=== PATIENT | female | born 1940 | race Caucasian/White ===

== ENCOUNTER 2017-01-11 22:18 | Inpatient (IN) | payer BC ==
--- NOTE | ~2017-01-11 | HP ---
History And Physical [address] [place]. [address] NAME: TRUE GIRON : 39 STATUS : ADM IN PAT#: [id number] AGE: 76 ADM/REG DATE : 01/11/17 MR#: [id number] REPORT SERV DATE: 01/12/17 DICTATED BY: IRAIDA MCCOLLUM DATE: 01/11/17 REPORT STATUS : Draft TRANSCRIBED BY: MODL DATE: 01/11/17 DATE OF ADMISSION: 01/11/2017 CHIEF COMPLAINT: Left hip pain. HISTORY: This is a 76-year-old female, who fell and injured her left hip. She has multiple medical problems including cirrhosis and dementia, she is accompanied here by her two sons who requested that I take care of her at [facility]. ALLERGIES: NONE. MEDICATIONS: See chart. PAST MEDICAL HISTORY: Hay fever, hypertension, history of pneumonia in October of this year, cirrhosis diagnosed four to five years ago, hemorrhoids, hiatal hernia, esophageal varices, GERD, diabetes, hypothyroidism, and blood transfusions 5 years ago. PAST SURGICAL HISTORY: Breast biopsy x2 in 1969, EGD in 2014, and paracentesis in 2012. SOCIAL HISTORY: Lives in the [facility]. She is here with her sons. Denies alcohol, cigarettes or illicit drug use. FAMILY HISTORY: No known anesthetic complications. REVIEW OF SYSTEMS: No recent illnesses with exception of the pneumonia noted above and chronic confusion. She also had acute renal insufficiency, chronic kidney disease, and elevated creatinine. PHYSICAL EXAMINATION: GENERAL: She is alert, pleasant, intermittently conversant. HEENT: Atraumatic, normocephalic. NECK: Supple. CHEST: Symmetric, nontender. LUNGS: As per the evaluation. CV: Regular. ABDOMEN: Soft. No mass. EXTREMITIES: Both upper extremities, right lower extremity are without acute trauma. Left lower extremity is short and externally rotated. SKIN: Intact. Compartment supple. 2+ pulses. NEURO: She is really unable to cooperate with the exam. X-RAY: Comminuted left intertrochanteric femur fracture. ASSESSMENT: Left intertrochanteric femur fracture. PLAN: ORIF. History And Physical [address] [place]. [address] NAME: TRUE GIRON : 39 STATUS : ADM IN PAT#: [id number] AGE: 76 ADM/REG DATE : 01/11/17 MR#: [id number] REPORT SERV DATE: 01/12/17 DICTATED BY: IRAIDA MCCOLLUM DATE: 01/11/17 REPORT STATUS : Draft TRANSCRIBED BY: IVÁN DATE: 01/11/17 I had a lengthy discussion with the anesthesiologist and with the family preoperatively. Discussed risks, benefits, etc, and they wished to proceed. JOVANA/IVÁN Marjorie Mccollum M.D. / [id number] CC: Marjorie Mccollum M.D.
--- NOTE | ~2017-01-11 | OP ---
Record Of Operation [facility] [address] [place]. [address] NAME: TRUE GIRON : 39 STATUS : ADM IN PAT#: [id number] AGE: 76 ADM/REG DATE : 01/11/17 MR#: [id number] REPORT SERV DATE: 01/12/17 DICTATED BY: IRAIDA DEL RIO DATE: 01/11/17 REPORT STATUS : Draft TRANSCRIBED BY: MODL DATE: 01/11/17 DATE OF PROCEDURE: PREOPERATIVE DIAGNOSIS: Left intertrochanteric femur fracture. POSTOPERATIVE DIAGNOSIS: Left intertrochanteric femur fracture. OPERATION: [place]/intertrochanteric femur fracture. SIDE: left. ARMATURE AND ROTOR WINDER: ESTIMATED BLOOD LOSS: About 100 mL. TOURNIQUET TIME: None. SPECIMENS: None. ANESTHESIA: See chart. PROCEDURE: The patient was taken to the preoperative holding area. The patient was appropriately identified, marked and the consent form carefully checked. The patient was taken then to the operating room and anesthetic was induced per the anesthesiologist. The patient was carefully positioned, carefully padded, prepped and draped on the fracture table. Prior to the surgical prep a closed reduction was obtained by closed method using fluoroscopic guidance. The patient was then prepped and draped in the usual sterile fashion. Using fluoroscopic guidance, a straight lateral incision was made. This was followed by electrocautery through the fat, the IT band and the vastus, staying towards the posterior portion of the lateral vastus to decrease the amount of muscle tissue that was cut through. Meticulous hemostasis was obtained with electrocautery. Lateral femoral cortex was exposed further with periosteal elevator and appropriate retraction. A guide was then used to place a guidewire basically in the center of the head on AP and lateral x-ray views. This was followed by depth gauge and then triple reamer. Lag screw was placed over the guidewire. The sliding plate was then placed and impacted and checked to be sure it was down snug. The plate was held with a plate clamp distally and reduction again checked. The screw holes in the plate were then filled with screws in the standard fashion with drill depth gauge and then self-tapping screw placement. The screws were then tightened by hand. All traction was released and the compression screw placed and tightened. Again x-ray views were checked to ascertain reduction and screw length. Record Of Operation [facility] [address] [place]. [address] NAME: TRUE GIRON : 39 STATUS : ADM IN [facility]#: [id number] AGE: 76 ADM/REG DATE : 01/11/17 MR#: [id number] REPORT SERV DATE: 01/12/17 DICTATED BY: IRAIDA DEL RIO DATE: 01/11/17 REPORT STATUS : Draft TRANSCRIBED BY: MODL DATE: 01/11/17 The wound was then irrigated and closed with sutures in the vastus. A medium drain was placed distally anteriorly between the vastus and the IT band, then sutured on the IT band, 2-0 subcutaneous, and josé miguel in the skin. Wound dressed sterilely. The patient was awakened and carefully transferred to the bed and transferred to the recovery room without incident. COUNTS: Correct. JOVANA/IVÁN Marjorie Del Rio M.D. / [id number] CC: Marjorie Del Rio M.D.
--- NOTE | ~2017-01-11 | DS ---
Discharge Summary [facility] [address] [place]. [address] NAME: TRUE ANN : 39 STATUS : DIS IN PAT#: [id number] AGE: 76 ADM/REG DATE : 01/11/17 MR#: [id number] REPORT SERV DATE: 02/23/17 DICTATED BY: VAISHALI PERATLA DATE: 02/22/17 REPORT STATUS : Draft TRANSCRIBED BY: MODL DATE: 02/22/17 ADMISSION DATE: 01/11/2017 DISCHARGE DATE: 01/16/2017 DISCHARGE DIAGNOSES: 1. Left hip fracture status post ORIF. 2. Acute blood loss anemia postoperatively. 3. Dementia with acute encephalopathy, encephalopathy resolved. 4. Nonalcoholic steatohepatitis. 5. Diabetes mellitus type 2 with hyperglycemia. 6. Acute kidney injury on chronic kidney disease, stage 4. 7. Hypertension. 8. Hypothyroidism. HISTORY OF PRESENT ILLNESS: For complete history, please refer to admission H and P. Briefly, Ms. Ann was initially admitted to the [facility] secondary to a fall with a left hip fracture. She requested Dr. Mccollum for her Orthopedic Surgeon and therefore was transferred to the [facility]. Please refer to, in addition, the interim discharge summary by Dr. Jesus Alberto Soliz. I initially saw the patient on 01/15/2017. She was four days postop her ORIF of the left hip. She was asleep, but easily aroused. Her son was at the bedside. The patient answered questions appropriately and followed commands. Her son reported that the previous hallucinations that she was experiencing were now resolved. She was oriented x2. She did have a positive fluid balance postoperatively; therefore, her home Aldactone and Lasix doses were resumed on this date. Ms. Ann was going to return to [facility], however, on this date, her insurance was pending approval. On 01/16/2017, Ms. Ann was continuing to improve, doing well, sitting up in a chair, alert and oriented, eating without difficulty and significantly better. No further hallucinations. It was okay for the patient to transfer to rehab per Dr. Mccollum. Therefore, on late afternoon of 01/16/2017, Ms. Ann was transferred to [facility] in stable condition. DISCHARGE INSTRUCTIONS: 1. Diet: 1800-calorie ADA diet is recommended. 2. Activity: As tolerated with Physical Therapy and Occupational Therapy evaluating and treat. DISCHARGE MEDICATIONS: As follows: 1. Questran 4 g p.o. daily. 2. Colace 100 mg p.o. b.i.d. 3. Ferrous sulfate 300 mg p.o. b.i.d. 4. Prozac 10 mg p.o. daily. 5. Fluticasone nasal spray, one spray each nostril daily. 6. Lasix 20 mg p.o. daily. 7. NovoLog sliding scale level 1. 8. Levemir 5 units subcutaneously daily at bedtime. 9. Synthroid 75 mcg p.o. daily 30 minutes before breakfast on an empty stomach. Please Discharge Summary [address] [place]. [address] NAME: TRUE ANN : 39 STATUS : DIS IN PAT#: [id number] AGE: 76 ADM/REG DATE : 01/11/17 MR#: [id number] REPORT SERV DATE: 02/23/17 DICTATED BY: VAISHALI PERALTA DATE: 02/22/17 REPORT STATUS : Draft TRANSCRIBED BY: IVÁN DATE: 02/22/17 note, this dose was changed while Ms. Ann was in the hospital as her TSH was elevated at greater than 7. 10.Corgard 40 mg p.o. daily. 11.Losartan 50 mg p.o. daily. 12.Prilosec 20 mg p.o. daily. 13.Seroquel 12.5 mg p.o. daily at bedtime. 14.Aldactone 25 mg p.o. daily. 15.Coumadin sliding scale. 16.Dulcolax tablet 15 mg p.o. p.r.n. constipation. 17.Dulcolax suppository p.r.n. constipation. 18.Tramadol 25 mg p.o. every six hours p.r.n. 19.Albuterol multidose inhaler two puffs q.4 hours p.r.n. shortness of breath. 20.Pepcid 20 mg p.o. b.i.d. Other discharge instructions include Ms. Ann will follow up with her primary care provider after discharge from rehab. BRIJESH/IVÁN Kathy Peralta [facility] / [id number] CC: Tanisha Spencer M.D.
--- NOTE | ~2017-01-11 | IDS ---
Interim Discharge Summary [facility] [address] [place]. [address] NAME: TRUE GIRON : 39 STATUS : ADM IN PAT#: [id number] AGE: 76 ADM/REG DATE : 01/11/17 MR#: [id number] REPORT SERV DATE: 01/14/17 DICTATED BY: ASTRID SOLIZ DATE: 01/14/17 REPORT STATUS : Draft TRANSCRIBED BY: MODL DATE: 01/14/17 ADMISSION DATE: 01/11/2017 DISCHARGE DATE: DIESEL ENGINE SPECIALIST: Dr. Reynold Mccollum, Orthopedic Surgery. PROBLEM LIST: 1. Acute traumatic fracture, left hip requiring surgical repair. 2. 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 3. Acute blood loss anemia due to hip fracture and surgery. 4. History of nonalcoholic steatohepatitis with current MELD of 12. 5. Acute kidney injury, superimposed on stage 4 chronic kidney disease. 6. Leukocytosis related to surgery and intraoperative steroids. 7. Doubt true urinary tract infection. 8. Uncontrolled hypertension. 9. Diabetes mellitus type 2 with A1c 5.5%. 10.Hypothyroidism. HISTORY: This patient was admitted at the [facility] because of a fall with a left hip fracture and the family wanted Dr. Mccollum to do the surgical care. The patient was felt medically stable for that procedure and on 01/12/2017, she had the surgery successfully. The patient, however, has had delirium, agitation, hallucinations. In talking with her sons, Akbar and Osvaldo, it was found that in 2015, she had significant decline in her cognitive function. They had to hire someone to come in to cook and clean. The patient just stayed in the bed. She was not any longer able to balance a checkbook, so the son Osvaldo had it take over. She was having resistance to bathing herself or even allowing anyone else to bathe her. She was no longer able to drive. She was given an antidepressant by her primary, but it did not really seem to help. She had a fall in June 2016 with a left knee fracture, treated with conservative nonsurgical therapy. She went to a rehab for a while and then to an assisted living facility, and she appeared to do fairly well. She then underwent EGD colonoscopy that was ordered by Dr. Todd Pacheco because she has a history of iron-deficiency anemia and nonalcoholic steatohepatitis. The EGD and colonoscopy revealed portal hypertensive gastropathy and hiatal hernia. A single gastric polyp colonoscopy revealed four nonbleeding colonic AV malformations, treated with coagulation therapy. One polyp in the transverse colon that was resected and received. Duodenal biopsies normal. Gastric antrum biopsy showed mild chronic gastritis with foveolar hyperplasia. No malignancy, dysplasia, or intestinal metaplasia. Negative H pylori. The colonic biopsy revealed essentially unremarkable findings. After the endoscopy, the sons described that the patient was much more confused than she had been ever before. She had a fall at the assisted living facility last week on Saturday. She was taken to the ER in [place], where the sons report that a CT of the brain was done and they were told, it was "okay." They were told that she had a UTI and was given an antibiotics. They were told that her blood pressure was high and her sugars were low. She went back to the assisted living facility. Reportedly, she had another fall and was taken Interim Discharge Summary [address] [place]. [address] NAME: TRUE GIRON : 39 STATUS : ADM IN [facility]#: [id number] AGE: 76 ADM/REG DATE : 01/11/17 MR#: [id number] REPORT SERV DATE: 01/14/17 DICTATED BY: ASTRID SOLIZ DATE: 01/14/17 REPORT STATUS : Draft TRANSCRIBED BY: IVÁN DATE: 01/14/17 to [facility], where she was found to have left hip fracture. She underwent the surgical therapy as mentioned above. Postop, the patient was unable to sleep and she had not slept for at least 24 hours before the surgery according to the sons because she was in the hospital at [facility]. She was restless. She was having visual hallucinations. She was not able to follow simple commands. She was not even able to count fingers in front of her. She would constantly look off to the side away from where the hand was. Imaging included CT scan of the brain without contrast. There was no evidence of trauma or hemorrhage that is moderate atrophy and moderate deep white matter changes. I did an MRI to see if there was any recent stroke. No acute stroke was noted. No bleed. There was fairly extensive atrophy and deep white matter changes as well as significant midbrain atrophy suggesting Parkinson. The patient slept much better on the evening of 01/13/2017 and was still sleeping early on the morning of 01/14/2017, and I asked the staff to allow her to sleep, which she did for a number of hours thereafter. She was then calm, alert, oriented to not only her person but where she was at. She knew she was at [facility] by name. She knew she was here because of injuries to her legs. She was able to follow simple commands. She was able to read. She made good sense. She was dramatically improved. 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 I have recommended to the sons that we use low-dose Seroquel just at bedtime to try to help ensure sleep, do this short-term, hopefully stop it before discharge and then began some Aricept at discharge, low dose at bedtime and then potentially a month or so down the road if she has done well with that, consider addition of Namenda. She does have the history of diabetes, but her A1c shows it is not taking much at all to control her sugars, so I have stopped her Levemir. I do not know how significant her kidney disease has been between 2014 and now. Back in 2014, creatinine was 1.46. During this hospitalization, it was up to 2.16. Currently, it is at 1.85 that may just be reflective of hydration and her creatinine at its baseline maybe now closer to 2. She was on levothyroxine at home 50 mcg, but her TSH was 7.19, so our [facility] partners increased to the 75 mcg at bedtime, which I think is reasonable as well. There has also been concerned about whether she might have had a urinary tract infection. The urinalysis from 01/10/2017 was from a catheter and had blood and also leukocyte esterase trace, 11 white cells, moderate bacteria. They did not do a culture. Then, her Duval catheter was left in place and on 01/12/2017, a repeat urinalysis showed large amount of leukocyte esterase, greater than 182 white cells, many white cell clumps, moderate budding yeasts, and 107 red blood cells, but the culture on that is just Azalea glabrata, so we are planning to take that Duval catheter out in the morning tomorrow and planning to discontinue antibiotics. I have requested records from Dr. Todd Pacheco's office, they have not come yet. Interim Discharge Summary [facility] [place]. [address] NAME: TRUE GIRON : 39 STATUS : ADM IN PAT#: [id number] AGE: 76 ADM/REG DATE : 01/11/17 MR#: [id number] REPORT SERV DATE: 01/14/17 DICTATED BY: ASTRID SOLIZ DATE: 01/14/17 REPORT STATUS : Draft TRANSCRIBED BY: IVÁN DATE: 01/14/17 [facility]/IVÁN Astrid Soliz M.D. / [id number] CC: Tanisha Spencer M.D.
[~2017-01-11 22:18] MED LIST: CLARIT10 PO; COLESTID1 GM PO; COR20 PO; COR40 PO; COZ25 PO; COZ50 PO; FESO4; FESO4 PO; FLONASE; FLONASE NAS; GLUCOTROL5 PO; GLUMETZA500 MG PO; IMOD PO; IRON160 MG PO; L20 PO; LEVEMFLXPN SC; LEVOTHYROXIN75 MCG PO; MULTIPLE VIT PO; NEUR600 PO; NOVOLOG SC; NOVOPEN SC; PEP20 PO; PEPTO BISMOL LIQ1 ML; PRILO PO; PRILOSEC OTC20 MG PO; PROAIR HFA INH; PROZ10 PO; PROZAC PO; SPIRO25 PO; SPIRO50 PO; SYN.05 PO; SYN075 PO; T PO; ULTRAM50 PO; ZOFRAN4 PO
[2017-01-12 05:12] LABS: ASCORBIC ACID (UR NOT ORDER) NEG (NEG); BILIRUBIN, URINE NEGATIVE (NEG); KETONE, URINE NEGATIVE (NEG); LEUKOCYTE ESTERASE(NOT OR LARGE (NEG)
[2017-01-12 05:34] LABS: WBC (NOT ORDERED) (RFLEX) > 182 (0-5)
[2017-01-12 06:41] LABS: INTERNATIONAL NORMAL RATI 1.3 UNITS (-); PROTIME (NOT ORD) 15.8 SEC (12.0-14.5)
[2017-01-12 06:43] LABS: BASOPHILS 0.1 %; BASOPHILS ABSOLUTE 0.01 10/3/uL (0.0-0.16); EOSINOPHILS 0.1 %; EOSINOPHILS ABSOLUTE 0.02 10/3/uL (0.0-0.53); HEMATOCRIT 31.8 % (36.0-48.0); HEMOGLOBIN 10.2 g/dL (12.0-16.0); IMMATURE GRANULOCYTES 0.2 %; IMMATURE GRANULOCYTES ABSOLUTE 0.04 10/3/uL (0.0-0.11); LYMPHOCYTES 4.7 %; LYMPHOCYTES ABSOLUTE 0.78 10/3/uL (0.67-4.30); MEAN CORPUS HGB CONC 32.1 g/dL (32.0-36.0); MEAN CORPUSCULAR HEMOGLOB 27.3 pg (26.0-34.0); MONOCYTES 11.6 %; MONOCYTES ABSOLUTE 1.92 10/3/uL (0.21-1.20); NEUTROPHILS 83.3 %; NEUTROPHILS ABSOLUTE 13.72 10/3/uL (2.02-8.40); PLATELET COUNT 184 10/3/uL (150-400); RBC DISTRIBUTION WIDTH 22.7 % (12.0-16.0); RED CELL COUNT 3.74 10/6/uL (4.0-5.6)
[2017-01-12 06:44] LABS: MANUAL DIFF NO %; WHITE BLOOD CELLS 16.5 10/3/uL (4.5-10.5)
[2017-01-12 06:54] LABS: A/G RATIO 0.6 (0.7-1.9); ALBUMIN 2.6 G/DL (3.5-5.0); ALKALINE PHOSPHATASE 151 U/L (45-117); BUN (BLOOD UREA NITROGEN) 29 MG/DL (6-23); CALCIUM, SERUM 8.3 MG/DL (8.5-10.4); CHLORIDE, SERUM 101 MMOL/L (96-112); CO2 (CARBON DIOXIDE) 23 MMOL/L (24-34); GFR AFRICAN AMERICAN 26 ML/MIN (>=60); GFR NON AFRICAN AMERICAN 22 ML/MIN (>=60); GLOBULIN 4.1 G/DL (2.5-4.1); GLUCOSE, SERUM 183 MG/DL (60-99); POTASSIUM, SERUM 3.3 MMOL/L (3.5-5.3); SGOT(AST) 27 U/L (5-40); SGPT(ALT) 23 U/L (5-65); SODIUM, SERUM 136 MMOL/L (135-148); TOTAL BILIRUBIN 0.2 MG/DL (0-1.2); TOTAL PROTEIN 6.7 G/DL (6.0-8.5)
[2017-01-12 07:06] LABS: PLATELET ESTIMATE ADQ (ADEQUATE)
[2017-01-13 06:50] LABS: BASOPHILS 0.1 %; BASOPHILS ABSOLUTE 0.01 10/3/uL (0.0-0.16); EOSINOPHILS 0.1 %; EOSINOPHILS ABSOLUTE 0.02 10/3/uL (0.0-0.53); HEMOGLOBIN 8.5 g/dL (12.0-16.0); IMMATURE GRANULOCYTES 0.5 %; IMMATURE GRANULOCYTES ABSOLUTE 0.07 10/3/uL (0.0-0.11); LYMPHOCYTES 7.4 %; LYMPHOCYTES ABSOLUTE 1.03 10/3/uL (0.67-4.30); MEAN CORPUS HGB CONC 33.6 g/dL (32.0-36.0); MEAN CORPUSCULAR HEMOGLOB 28.1 pg (26.0-34.0); MEAN CORPUSCULAR VOLUME 83.8 fL (80-100); MONOCYTES 15.5 %; MONOCYTES ABSOLUTE 2.17 10/3/uL (0.21-1.20); NEUTROPHILS 76.4 %; NEUTROPHILS ABSOLUTE 10.67 10/3/uL (2.02-8.40); PLATELET COUNT 157 10/3/uL (150-400); RBC DISTRIBUTION WIDTH 23.2 % (12.0-16.0); RED CELL COUNT 3.02 10/6/uL (4.0-5.6)
[2017-01-13 06:51] LABS: HEMATOCRIT 25.3 % (36.0-48.0); MANUAL DIFF NO %
[2017-01-13 06:56] LABS: INTERNATIONAL NORMAL RATI 1.5 UNITS (-); PROTIME (NOT ORD) 17.5 SEC (12.0-14.5)
[2017-01-13 06:59] LABS: BUN (BLOOD UREA NITROGEN) 34 MG/DL (6-23); CALCIUM, SERUM 8.1 MG/DL (8.5-10.4); CHLORIDE, SERUM 99 MMOL/L (96-112); CO2 (CARBON DIOXIDE) 23 MMOL/L (24-34); CREATININE 2.13 MG/DL (0.55-1.02); GFR AFRICAN AMERICAN 25 ML/MIN (>=60); GFR NON AFRICAN AMERICAN 22 ML/MIN (>=60); GLUCOSE, SERUM 144 MG/DL (60-99); POTASSIUM, SERUM 3.9 MMOL/L (3.5-5.3); SODIUM, SERUM 133 MMOL/L (135-148)
[2017-01-13 07:53] LABS: PLATELET ESTIMATE ADQ (ADEQUATE)
[2017-01-14 05:18] LABS: A/G RATIO 0.6 (0.7-1.9); ALBUMIN 2.2 G/DL (3.5-5.0); ALKALINE PHOSPHATASE 133 U/L (45-117); BUN (BLOOD UREA NITROGEN) 33 MG/DL (6-23); CALCIUM, SERUM 8.1 MG/DL (8.5-10.4); CHLORIDE, SERUM 101 MMOL/L (96-112); CO2 (CARBON DIOXIDE) 24 MMOL/L (24-34); CREATININE 1.85 MG/DL (0.55-1.02); GFR AFRICAN AMERICAN 30 ML/MIN (>=60); GFR NON AFRICAN AMERICAN 26 ML/MIN (>=60); GLOBULIN 3.7 G/DL (2.5-4.1); GLUCOSE, SERUM 141 MG/DL (60-99); POTASSIUM, SERUM 4.1 MMOL/L (3.5-5.3); SGOT(AST) 33 U/L (5-40); SGPT(ALT) 10 U/L (5-65); SODIUM, SERUM 135 MMOL/L (135-148); TOTAL BILIRUBIN 0.4 MG/DL (0-1.2); TOTAL PROTEIN 5.9 G/DL (6.0-8.5)
[2017-01-14 05:37] LABS: INTERNATIONAL NORMAL RATI 1.3 UNITS (-); PROTIME (NOT ORD) 16.5 SEC (12.0-14.5)
[2017-01-14 05:38] LABS: BASOPHILS 0.1 %; BASOPHILS ABSOLUTE 0.01 10/3/uL (0.0-0.16); EOSINOPHILS 1.5 %; EOSINOPHILS ABSOLUTE 0.13 10/3/uL (0.0-0.53); HEMATOCRIT 26.3 % (36.0-48.0); HEMOGLOBIN 8.8 g/dL (12.0-16.0); IMMATURE GRANULOCYTES 0.2 %; IMMATURE GRANULOCYTES ABSOLUTE 0.02 10/3/uL (0.0-0.11); LYMPHOCYTES 11.6 %; LYMPHOCYTES ABSOLUTE 1.01 10/3/uL (0.67-4.30); MEAN CORPUS HGB CONC 33.5 g/dL (32.0-36.0); MEAN CORPUSCULAR HEMOGLOB 28.6 pg (26.0-34.0); MEAN CORPUSCULAR VOLUME 85.4 fL (80-100); MEAN PLATELET VOLUME 10.6 fL (9.2-13.0); MONOCYTES 14.7 %; MONOCYTES ABSOLUTE 1.28 10/3/uL (0.21-1.20); NEUTROPHILS 71.9 %; NEUTROPHILS ABSOLUTE 6.25 10/3/uL (2.02-8.40); PLATELET COUNT 167 10/3/uL (150-400); RBC DISTRIBUTION WIDTH 23.5 % (12.0-16.0); RED CELL COUNT 3.08 10/6/uL (4.0-5.6); WHITE BLOOD CELLS 8.7 10/3/uL (4.5-10.5)
[2017-01-14 05:50] LABS: MANUAL DIFF NO %
[2017-01-14 06:52] LABS: GIANT PLATELET FEW; PLATELET ESTIMATE ADQ (ADEQUATE); RBC MORPHOLOGY ABN (NORMAL)
[2017-01-15 09:01] LABS: BASOPHILS 0.1 %; BASOPHILS ABSOLUTE 0.01 10/3/uL (0.0-0.16); EOSINOPHILS 4.5 %; EOSINOPHILS ABSOLUTE 0.31 10/3/uL (0.0-0.53); HEMATOCRIT 25.3 % (36.0-48.0); HEMOGLOBIN 8.4 g/dL (12.0-16.0); IMMATURE GRANULOCYTES 0.3 %; IMMATURE GRANULOCYTES ABSOLUTE 0.02 10/3/uL (0.0-0.11); LYMPHOCYTES ABSOLUTE 1.11 10/3/uL (0.67-4.30); MEAN CORPUS HGB CONC 33.2 g/dL (32.0-36.0); MEAN CORPUSCULAR HEMOGLOB 28.2 pg (26.0-34.0); MEAN CORPUSCULAR VOLUME 84.9 fL (80-100); MEAN PLATELET VOLUME 10.9 fL (9.2-13.0); MONOCYTES ABSOLUTE 1.04 10/3/uL (0.21-1.20); NEUTROPHILS 64.1 %; NEUTROPHILS ABSOLUTE 4.44 10/3/uL (2.02-8.40); PLATELET COUNT 165 10/3/uL (150-400); RBC DISTRIBUTION WIDTH 23.4 % (12.0-16.0); RED CELL COUNT 2.98 10/6/uL (4.0-5.6); WHITE BLOOD CELLS 6.9 10/3/uL (4.5-10.5)
[2017-01-15 09:03] LABS: MANUAL DIFF NO %
[2017-01-15 09:20] LABS: A/G RATIO 0.6 (0.7-1.9); ALBUMIN 1.9 G/DL (3.5-5.0); ALKALINE PHOSPHATASE 132 U/L (45-117); CALCIUM, SERUM 7.5 MG/DL (8.5-10.4); CHLORIDE, SERUM 103 MMOL/L (96-112); CO2 (CARBON DIOXIDE) 24 MMOL/L (24-34); GFR AFRICAN AMERICAN 31 ML/MIN (>=60); GFR NON AFRICAN AMERICAN 27 ML/MIN (>=60); GLOBULIN 3.3 G/DL (2.5-4.1); GLUCOSE, SERUM 127 MG/DL (60-99); POTASSIUM, SERUM 4.8 MMOL/L (3.5-5.3); SGOT(AST) 23 U/L (5-40); SGPT(ALT) 9 U/L (5-65); SODIUM, SERUM 135 MMOL/L (135-148); TOTAL BILIRUBIN 0.4 MG/DL (0-1.2); TOTAL PROTEIN 5.2 G/DL (6.0-8.5)
[2017-01-15 09:22] LABS: BUN (BLOOD UREA NITROGEN) 39 MG/DL (6-23)
[2017-01-15 09:48] LABS: INTERNATIONAL NORMAL RATI 1.8 UNITS (-)
[2017-01-15 09:55] LABS: PROTIME (NOT ORD) 20.3 SEC (12.0-14.5)
[2017-01-15 10:04] LABS: MACROCYTES 1+ (5-10/OIF) (0-5/OIF); MICROCYTES 1+ (5-10/OIF) (0-5/OIF); PLATELET ESTIMATE ADQ (ADEQUATE)
[2017-01-16 05:50] LABS: BASOPHILS 0.1 %; BASOPHILS ABSOLUTE 0.01 10/3/uL (0.0-0.16); EOSINOPHILS 4.4 %; HEMATOCRIT 27.5 % (36.0-48.0); HEMOGLOBIN 9.4 g/dL (12.0-16.0); IMMATURE GRANULOCYTES 0.2 %; IMMATURE GRANULOCYTES ABSOLUTE 0.02 10/3/uL (0.0-0.11); LYMPHOCYTES 13.4 %; LYMPHOCYTES ABSOLUTE 1.21 10/3/uL (0.67-4.30); MEAN CORPUS HGB CONC 34.2 g/dL (32.0-36.0); MEAN CORPUSCULAR HEMOGLOB 28.9 pg (26.0-34.0); MEAN CORPUSCULAR VOLUME 84.6 fL (80-100); MEAN PLATELET VOLUME 10.5 fL (9.2-13.0); MONOCYTES 16.6 %; NEUTROPHILS 65.3 %; RBC DISTRIBUTION WIDTH 23.6 % (12.0-16.0); RED CELL COUNT 3.25 10/6/uL (4.0-5.6)
[2017-01-16 05:53] LABS: MANUAL DIFF NO %; PLATELET COUNT 224 10/3/uL (150-400)
[2017-01-16 05:54] LABS: BUN (BLOOD UREA NITROGEN) 38 MG/DL (6-23); CALCIUM, SERUM 7.7 MG/DL (8.5-10.4); CHLORIDE, SERUM 103 MMOL/L (96-112); CO2 (CARBON DIOXIDE) 21 MMOL/L (24-34); CREATININE 1.71 MG/DL (0.55-1.02); GFR AFRICAN AMERICAN 33 ML/MIN (>=60); GFR NON AFRICAN AMERICAN 28 ML/MIN (>=60); GLUCOSE, SERUM 142 MG/DL (60-99); POTASSIUM, SERUM 4.5 MMOL/L (3.5-5.3); SODIUM, SERUM 133 MMOL/L (135-148)
[2017-01-16 05:56] LABS: INTERNATIONAL NORMAL RATI 2.2 UNITS (-)
[2017-01-16 05:58] LABS: PROTIME (NOT ORD) 24.1 SEC (12.0-14.5)
[2017-01-16 06:16] LABS: BAND NEUTROPHILS 1 %; EOSINOPHILS 2 %; EOSINOPHILS ABSOLUTE (CALC) 0.18 10/3/uL (0.0-0.53); IMMATURE MONONUCLEAR 1 % (0); LYMPHOCYTES 6 %; LYMPHOCYTES ABSOLUTE (CALC) 0.54 10/3/uL (0.67-4.30); MONOCYTES 9 %; MONOCYTES ABSOLUTE (CALC) 0.81 10/3/uL (0.21-1.20); NEUTROPHILS ABSOLUTE (CALC) 7.38 10/3/uL (2.02-8.40); PLATELET ESTIMATE ADQ (ADEQUATE); RBC MORPHOLOGY ABN (NORMAL); SEGMENTED NEUTROPHIL (0) 81 %; TOTAL NUCLEATED CELLS 100
[2017-04-11] MEDS ORDERED: NORV5 PO (09:12)
[2017-04-11] MEDS ORDERED: COR40 PO (09:12)
[2017-04-11] MEDS ORDERED: PREVALITE4 G1 PO (09:15)
[2017-04-11] MEDS ORDERED: XIFAXAN550 MG PO (09:16)
[2017-04-11] MEDS ORDERED: CALMOSEPTINE O2.5 OZ T (09:17)
[2017-04-11] MEDS ORDERED: APRES25 PO (09:19)
[2017-05-14] MEDS ORDERED: L20 PO (09:02)
[2017-05-14] MEDS ORDERED: PR25 (09:03)
[2017-05-14] MEDS ORDERED: PROZAC40 MG (09:03)
[2017-05-14] MEDS ORDERED: LEVOTHYROXIN75 MCG PO (09:04)
[2017-06-17] MEDS ORDERED: PAX10 PO (09:45)
[2017-06-17] MEDS ORDERED: ZOFRAN4 PO (09:47)
== END 2017-01-16 18:43 | DRG 480 ==
LOC: 3SO 22:18
PROVIDERS: Hospitalist; Nurse Practitioner Acute Care; Nurse Practitioner Family; Specialist
PROC: 0QS904Z Reposition Left Femoral Shaft with Internal Fixation Device, Open Approach (ICD-10-PCS; principal; 2017-01-11 18:15)
DX: S72.002A Fracture of unspecified part of neck of left femur, initial encounter for closed fracture (principal); G93.41 Metabolic encephalopathy; N18.4 Chronic kidney disease, stage 4 (severe); N17.9 Acute kidney failure, unspecified; D62 Acute posthemorrhagic anemia; N39.0 Urinary tract infection, site not specified; I12.9 Hypertensive chronic kidney disease with stage 1 through stage 4 chronic kidney disease, or unspecified chronic kidney disease; E11.22 Type 2 diabetes mellitus with diabetic chronic kidney disease; E11.65 Type 2 diabetes mellitus with hyperglycemia; E03.9 Hypothyroidism, unspecified; F32.9 Major depressive disorder, single episode, unspecified; K75.81 Nonalcoholic steatohepatitis (NASH); Z79.4 Long term (current) use of insulin; E11.649 Type 2 diabetes mellitus with hypoglycemia without coma
CPT/HCPCS: 70450; 70551; 71020; 73502-LT; 76000; 80048; 80053; 80076; 81001; 82140; 82607; 82962; 83036; 83690; 83735; 84443; 84484; 85025; 85610; 85730; 86592; 87086; 87389; 87641; 93005; 96374; 96375; 97110-GO; 97110-GP; 97116-GP; 97163-GP; 97165-GO; 97530-GP; 99291; A9270-GY; C1713; J0360; J0690; J1170; J1885; J2274; J2405; J2795; J3010